=== PATIENT | male | born 1985 | race Caucasian/White ===

== ENCOUNTER 2016-06-27 11:26 | Emergency (ER) | payer OTHER ==
[~2016-06-27] VITALS: Ht 177.8 cm; Wt 65.9 kg
[2016-06-27 11:35] VITALS: BP 133/94; PULSE 111; RESP 20; O2SAT 98
--- NOTE | 2016-06-27 11:55 | ED.REPORT ---
HPI-Overdose/Alcohol Toxicity Date of Service Jun 27, 2016 ED Provider: Nursing Notes Stated Complaint: ALCOHOL WITHDRAWAL Chief Complaint: Substance Abuse Allergies: Coded Allergies: No Known Allergies (Unverified Allergy, 03/26/12) General Time Seen by Provider: 11:55 Physical Exam Initial Vital Signs Vital Signs (First) Date Time Temp Pulse Resp B/P Pulse Ox O2 Delivery O2 Flow Rate FiO2 06/27/16 11:35 37.0 111 20 133/94 98 Room Air Katalina Sapp Jun 27, 2016 11:55
[2016-06-27] MEDS ORDERED: Thiamine Inj 100 MG, Folic Acid Inj 1 MG, Magnesium Sulfate 50% Inj 2 GM, Multivitamins... IV ONE ×5 (12:10)
[2016-06-27] MEDS ORDERED: Ondansetron 2 mg/mL 2 mL Inj IVPUSH PRN (12:15)
[2016-06-27] MEDS ORDERED: Pantoprazole 4 mg/mL 10 mL Inj IVPUSH ONE (12:15)
--- NOTE | 2016-06-27 12:30 | ED.REPORT ---
HPI-General Illness Date of Service Jun 27, 2016 ED Provider: Julius Wang DO History of Present Illness: Gary Mena is a 30 year old man with a PMH of anxiety, IV drug use, and alcohol withdrawl who presents with likely alcohol withdrawl having last had a drink yesterday. He says he typically consumes 4-6 "4Loco" alcoholic beverages daily. He states that he has been going through an especially difficult time lately due to housing difficulties and thus has been drinking more lately than his usual consumption patter. He had tried to wean himself back down, but yesterday evening started becoming shaky and tremulous, he has not been able to tolerate PO intake and has been vomiting copiously for the past 3 days. He has withdrawn from alcohol in the past and does not think he had seizures at that time, but he does think he had a seizure about 3 weeks ago which was evaluated at [facility] in [place]. He further complains of GERD, which he states is the driving factor in his nausea. He states that he last ate about 3 days ago. Nursing Notes Stated Complaint: ALCOHOL WITHDRAWAL Chief Complaint: Substance Abuse Nursing Notes Reviewed: Yes Allergies: Coded Allergies: No Known Allergies (Unverified Allergy, Unknown, 06/27/16) General Time Seen by MD: 11:30 Chief Complaint Other (alcohol withdrawl) Hx Obtained From: Patient Arrived By: Walk-in Onset Occurred: 2 days ago Context of Onset: EtOH use Symptom Duration: Since onset Severity: Current: Mild Severity: Maximum: Mild Similar Sx Previous: Yes Past Medical History Past Medical History anxiety IV drug use Alcohol withdrawl Social History Alcohol Use: >5 per day Ambulatory Status Independent Review of Systems Full Review of Systems Constitutional: Reports: Weakness - generalized Eyes: Reports: Blurred left, Blurred right GI: Reports: Abdominal pain, Nausea, Vomiting Complete sys rev & neg: except as marked. Physical Exam Gen: A/O x3 pleasant cooperative male, moderate acute distress due to tremor and anxiety Neck: Supple, non-tender, Full ROM HEENT: PERRL, EOMI, no scleral icterus CV: RRR no murmurs rubs or gallops Resp: Lungs CTA BL, no wheezing rales or rhonchi Abdomen: Soft, diffusely tender most acutely in epigastric and RUQ, +BS 4Q Extr: No cyanosis clubbing or edema Vital Signs Vital Signs Date Time Temp Pulse Resp B/P Pulse Ox O2 Delivery O2 Flow Rate FiO2 06/27/16 11:35 37.0 111 20 133/94 98 Room Air Interpretation & Diagnostics Lab Results Interpretation Result Diagram: 06/27/16 1225 06/27/16 1225 Test 06/27/16 12:25 06/27/16 12:28 White Blood Count 6.4th/mm3 (3.8-10.1) Red Blood Count 4.56mil/mm3 (4.40-5.80) Hemoglobin 15.2g/dL (13.8-17.2) Hematocrit 43.5% (41.0-50.0) Mean Corpuscular Volume 95.4fL (81-100) Mean Corpuscular Hemoglobin 33.3pg (27.0-35.0) Mean Corpuscular Hemoglobin Concent 34.9% (32.0-37.0) Red Cell Distribution Width 12.7% (12.3-15.4) Platelet Count 236bil/L (150-400) Neutrophils (%) (Auto) 71.4% (40-74) Lymphocytes (%) (Auto) 16.4% (14-46) Monocytes (%) (Auto) 10.4% (4-12) Eosinophils (%) (Auto) 0.2% (0-5) Basophils (%) (Auto) 1.4% (0-3) Sodium Level 136mEq/L (134-144) Potassium Level 4.3mEq/L (3.5-5.2) Chloride Level 94mEq/L (97-108) Carbon Dioxide Level 21mmol/L (18-29) Blood Urea Nitrogen 13mg/dL (6-20) Creatinine 0.60mg/dL (0.76-1.27) Estimat Glomerular Filtration Rate 167mL/min (>59) Glucose Level 115mg/dL (60-99) Calcium Level 9.4mg/dL (8.5-10.1) Total Bilirubin 0.9mg/dL (0.0-1.2) Aspartate Amino Transf (AST/SGOT) 58U/L (0-50) Alanine Aminotransferase (ALT/SGPT) 27U/L (0-44) Alkaline Phosphatase 79U/L (25-150) Total Protein 8.2g/dL (6.4-8.4) Albumin 5.0g/dL (3.4-5.0) Lipase 46U/L (13-60) Hold Red Top Tube Received (Received) Hold Moss Top Tube Received (Received) Re-Eval/Medical Decision Med Decision/Clinical Course Patient without overt signs of pancreatitis, labs and electrolytes largely reassuring. He was able to tolerate PO intake without incident. [facility], patient met with substance abuse counselor, and will follow up with their recommendations Counseled Regarding: Diagnosis, Lab results, Need for follow-up, When/why to return to ED Discharge & Departure Shift Change Sign-Out Patient Care Transferred: No Discussed Complaint(s): Yes Laboratory Evaluation: Lab evaluation discussed Response to Therapy: Improved Primary Impression: Alcohol withdrawal Complication of substance-induced condition: uncomplicated Qualified Code: F10.230 - Alcohol dependence with withdrawal, uncomplicated Disposition: Home Discharge Condition All VS Reviewed: Yes Condition: Stable Patient Instructions: Abuse of Alcohol (ED) Additional Instructions: If you begin to have worsening tremor, visual disturbances or hallucinations, intolerable agitation, or heavy sweating please come back to the ER for further treatment. At this time you appear to be fairly stable and not in need of immediate treatment. However, given that you still have some alcohol in your system your current symptoms may get worse in the next few days. If these symptoms become intolerable then please return for further evaluation. As per your discussion with the substance abuse counselor you have been provided with further options for potential rehabilitation, I encourage you to access them to further your recovery and sobriety process. You can call [facility] at [phone] to see if beds become available. Attending Statement The patient was seen and examined together with Dr. Atwood on 06/26/16nd I have added additional information to the note above. Vj Atwood DO Jun 27, 2016 12:30 Julius Wang DO Jun 27, 2016 16:33
[2016-06-27 12:32] LABS: BASOPHILS % (AUTO) 1.4 % (0-3); EOSINOPHILS % (AUTO) 0.2 % (0-5); MONOCYTES % (AUTO) 10.4 % (4-12); Mean Corpuscular Hemoglobin 33.3 pg (27.0-35.0); Mean Corpuscular Volume 95.4 fL (81-100); NEUTROPHILS % (AUTO) 71.4 % (40-74); Platelet Count 236 bil/L (150-400)
[2016-06-27] MEDS ORDERED: Sodium Chloride LOK Flush 10 mL Syringe IVFLUSH SCH (16:30)
[2016-06-27 16:37] VITALS: BP 145/82; PULSE 85; O2SAT 98
== END 2016-06-27 16:37 | disposition home or self-care (01) ==
LOC: SED 11:26
DX: F10.230 Alcohol dependence with withdrawal, uncomplicated (principal); F41.9 Anxiety disorder, unspecified; K21.9 Gastro-esophageal reflux disease without esophagitis; F19.20 Other psychoactive substance dependence, uncomplicated
CPT/HCPCS: 36415; 80053; 82075; 83690; 85025; 96365; 96366; 96375; 96376; 99285; J2405; J3360; J3475; J7030

== ENCOUNTER 2016-07-09 13:04 | Emergency (ER) | payer OTHER ==
[~2016-07-09] VITALS: Ht 177.8 cm; Wt 64.1 kg
[2016-07-09 13:06] VITALS: BP 133/89; PULSE 85; RESP 16; O2SAT 95
--- NOTE | 2016-07-09 13:10 | ED.REPORT ---
HPI-Overdose/Alcohol Toxicity Date of Service Jul 09, 2016 ED Provider: Armen Rubi MD 30 year old male with a two-month history of alcoholism and depression who is an everyday smoker presents to the ER requesting assistance with rehabilitation from alcohol. Last drink was yesterday. Currently he reports nausea, and states that he has been vomiting today. Patient denies any suicidal or homicidal ideation, hematemesis, hematochezia, and history of illicit drug abuse. He reports that the past few months have been extremely stressful due to difficulty finding a job which is the cause for his alcoholism. Patient also states that he had a breakthrough seizure some weeks ago while at work after a smoke-break. Today [facility] to [facility] bed, and was referred to the ER. Nursing Notes Stated Complaint: DETOX Chief Complaint: Substance Abuse Nursing Notes Reviewed: Yes Allergies: Coded Allergies: No Known Allergies (Verified Allergy, Unknown, 07/09/16) No Active Prescriptions or Reported Meds General Time Seen by Provider: 13:09 Chief Complaint Other (Alcohol Detox) Hx Obtained From: Patient Arrived By: Walk-in Onset Occurred: More than a week ago... (2 months) Associated with: Reports: Nausea, Vomiting Related History: Reports: Alcoholism, Depression Risk-Overdose/Alcohol Tox )( Suicide Risk Stratification : Alcohol use RF Statements: Risk factors reviewed Past Medical History Past Medical History anxiety IV drug use Alcohol withdrawl Social History Alcohol Use: >5 per day Ambulatory Status Independent Review of Systems Constitutional: Denies: Fever Cardiovascular: Denies: Chest pain GI: Reports: Nausea, Vomiting, Denies: Bloody/tarry stool, Hematemesis, Hematochezia, Melena Psychiatric: Reports: Anxiety, Depression, Denies: Homicidal ideation, Suicidal ideation Complete sys rev & neg: except as marked. Physical Exam Initial Vital Signs Vital Signs (First) Date Time Temp Pulse Resp B/P Pulse Ox O2 Delivery O2 Flow Rate FiO2 07/09/16 13:06 36.7 85 16 133/89 95 Room Air Initial VS: Reviewed Head / Eyes: Atraumatic, Normocephalic Neck: Supple, Non-tender, Full range of motion Extremities: Vascular intact, Neuro intact, No swelling, No tenderness Skin: Warm, Dry, No cyanosis General/Constitutional: Awake, Alert, Well developed, Well nourished Respiratory / Chest: Atraumatic, Breath sounds NL, Breath sounds = bilat, No respiratory distress, No rales, No rhonchi, No wheezing Cardiovascular: Heart rate NL, Regular rhythm, Heart sounds NL, Cap refill not delayed, Peripheral circulation NL Abdomen: Atraumatic, Soft, Non-tender, No guarding, No rebound Neurologic: Oriented X3, Speech NL, No motor deficits, No sensory deficits Psychiatric: Affect NL, Mood NL, Not suicidal, Not homicidal Interpretation & Diagnostics Lab Results Interpretation Test 07/09/16 13:20 Hold Urine Received (Received) Re-Eval/Medical Decision Source of Hx: Old records Re-Evaluation/Progress : Time of Eval: 13:25 Re-Evaluation/Progress Note: Discussed call with [facility]. Consultation : Call Returned at: 13:18 Note: Discussed patient case with [facility]. Counseled Regarding: Diagnosis, Lab results Discharge & Departure Impression: Primary Impression: Alcohol abuse Additional Impression: Alcohol withdrawal )( Condition at Discharge: No danger to self, No danger to others, No suicidal ideation, No homicidal ideation Disposition: Home Discharge Condition All VS Reviewed: Yes Condition: Stable Patient Instructions: Alcohol Withdrawal (ED) Additional Instructions: Go directly to [facility] at 4 PM. Take lorazepam as directed for withdrawal symptoms. Follow up with mental health and substance abuse counseling as soon as you are able. Referrals: [facility] (PCP) Scribe Attestation Portions of this note were transcribed by Fabiana Hernandez. I, Dr. Rubi, personally performed the history, physical exam and medical decision-making; I reviewed and confirmed the accuracy of the information in the transcribed note. Signed by: Talita Anderson, 07/09/2016 and *time* Armen Rubi MD Jul 09, 2016 13:10 FABIANA HERNANDEZ Jul 09, 2016 13:17
[2016-07-09] MEDS ORDERED: LORazepam 2 mg Tablet PO ONE (13:20)
[2016-07-09] MEDS ORDERED: LORA1TAB PO (14:09)
== END 2016-07-09 14:00 | disposition home or self-care (01) ==
LOC: SED 13:04
DX: F10.239 Alcohol dependence with withdrawal, unspecified (principal); F17.200 Nicotine dependence, unspecified, uncomplicated